=== PATIENT | male | born 1965 | race Hispanic/Latino ===

== ENCOUNTER → 2024-12-30 | Emergency (ER) | payer BC ==
[~2024-12-30] VITALS: Ht 165.1 cm; Wt 61.7 kg
[~2024-12-30] MED LIST: APIX5TAB PO
[2024-12-30 12:38] LABS: IMMATURE GRANULOCYTE ABSOLUTE 0.01 K/uL (0-1); NUCLEATED RED BLOOD CELLS 0.0 % (0.0-0.19); PLATELET COUNT (AUTO) 194 K/uL (130-400); RED BLOOD CELL COUNT(AUTO) 4.46 MIL/uL (4.50-6.20); RED CELL DISTRIBUTION WIDTH 12.0 % (11.0-15.5); WHITE BLOOD COUNT (AUTO) 5.2 K/uL (4.8-10.8)
[2024-12-30 12:48] LABS: INR 1.03 (0.85-1.15)
--- NOTE | 2024-12-30 12:57 | EKG ---
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
[2024-12-30 12:58] LABS: CREATININE 0.7 mg/dL (0.5-1.3); GLOMERULAR FILTR. RATE CALC 105.0 mL/min (>90); GLUCOSE,RANDOM 105.0 mg/dL (70-105); SODIUM SERUM 144.0 mmol/L (136-145); UREA NITROGEN, BLOOD 23.0 mg/dL (7-18)
[2024-12-30 13:03] LABS: ASPARTATE AMINOTRANSFERASE 29.0 U/L (10-37); TOTAL PROTEIN, SERUM 7.7 g/dL (6.0-8.3)
[2024-12-30 13:22] VITALS: BP 121/74; PULSE 45; RESP 17; TEMP 98.1; O2SAT 98
--- NOTE | 2024-12-30 13:29 | HMCIMG ---
EXAM: CR Chest, 1 View. CLINICAL HISTORY: cp COMPARISON: None provided. FINDINGS: LUNGS: The lungs show no infiltrate or other acute finding. PLEURAL SPACES: No evidence of pleural effusion or pneumothorax. Scarring along the left lateral costophrenic angle. MEDIASTINUM: The cardiomediastinal silhouette is within normal limits. BONES: No aggressive appearing osseous lesion seen. IMPRESSION: No acute cardiopulmonary pathology is evident. /[place]
[2024-12-30] MEDS: LIDOCAINE HCL 2% VISCOUS 15 ML UDCUP PO SCH (14:06)
[2024-12-30] MEDS: MIDAZOLAM HCL 1 MG/ML 2ML VIAL IVP SCH (14:07)
--- NOTE | 2024-12-30 14:50 | ERN ---
ED Note History of Present Illness Stated Complaint: OTHER Chief Complaint: Other Problems Time Seen by MD: 12:17 Dictation: 59-year-old male presenting to the emergency department for new onset atrial fibrillation, asymptomatic, patient was being screened for colonoscopy in and found to be in a rate controlled atrial fibrillation rhythm, sent over by buffer nickel for evaluation and possible cardioversion Allergies: Coded Allergies: No Known Drug Allergies (Unverified Allergy, Unknown, 12/30/24) Past Medical History Past Medical History: No Pertinent History Surgical History: Other Surgical History Other: PARTIAL SPLENECTOMY, EXPLORATORY LAP Review of System Dictation Constitutional: Negative for fever,chills, and weight loss Eyes: Negative for injury, pain,redness, and discharge ENT: Negative for injury,pain or swelling Cardiovascular: Negative for chest pain, palpitations, and edema Respiratory: Negative for shortness of breath, cough, and wheezing, Abdomen/GI: Negative for abdominal pain, nausea, vomiting, diarrhea, and constipation Back: Negative for injury and pain : Negative for injury, bleeding and discharge MS/Extremity: Negative for injury and deformity Skin: Negative for rash, and discoloration Neuro: Negative for headache, weakness, numbness, tingling, and seizure Psych: Negative for suicide ideation, homicidal ideation, and hallucinations Initial Vital Sign VS Vital Signs Date Time Temp Pulse Resp B/P (MAP) Pulse Ox O2 Delivery O2 Flow Rate FiO2 12/30/24 12:50 50 16 118/71 99 Room Air 0 12/30/24 13:22 98.1 21 Physical Exam Dictation General: awake, alert, NAD Head/Face: Normocephalic, atraumatic Eyes: PERRL, EOMI, vision at baseline ENT: oral cavity clear, TMs clear, no signs of infection Neck: Trachea midline, supple, no nuchal rigidity Cardiovascular: Irregular rhythm normal S1/S2, No MRGs, no JVD Respiratory: CTAB, no respiratory distress, No rales or wheezes Abdomen: Soft, non-tender, non-distended, normal bowel sounds, no guarding or rebound. Skin: Warm, dry, normal turgor, no rash MS/Extremity: Pulses equal, no cyanosis, neurovascular intact, FROM Neuro: COAx4, GCS 15, strength 5/5, CN 2-12 intact, normal cerebellar exam, normal gait, Psych: Normal behavior, mood, and affect normal Results (Laboratory/Radiology) Laboratory/Radiology Laboratory Tests Test 12/30/24 12:33 White Blood Count 5.2 K/uL (4.8-10.8) Red Blood Count 4.46 MIL/uL (4.50-6.20) L Hemoglobin 13.7 g/dL (14.0-18.0) L Hematocrit 40.7 % (42-54) L Mean Corpuscular Volume 91.3 fL (79-99) Mean Corpuscular Hemoglobin 30.7 pg (27.0-33.0) Mean Corpuscular Hemoglobin Concent 33.7 g/dL (32.0-36.0) Red Cell Distribution Width 12.0 % (11.0-15.5) Platelet Count 194 K/uL (130-400) Mean Platelet Volume 10.0 fL (7.5-10.5) Immature Granulocyte % (Auto) 0.2 % (0-1) Neutrophils (%) (Auto) 54.5 % (40.0-77.0) Lymphocytes (%) (Auto) 34.9 % (21.0-51.0) Monocytes (%) (Auto) 7.1 % (3.0-13.0) Eosinophils (%) (Auto) 2.7 % (0.0-8.0) Basophils (%) (Auto) 0.6 % (0.0-5.0) Neutrophils # (Auto) 2.8 K/uL (1.8-7.7) Lymphocytes # (Auto) 1.8 K/uL (1.0-4.8) Monocytes # (Auto) 0.4 K/uL (0.1-1.0) Eosinophils # (Auto) 0.14 K/uL (0.00-0.70) Basophils # (Auto) 0.03 K/uL (0.00-0.20) Absolute Immature Granulocyte (auto 0.01 K/uL (0-1) Nucleated Red Blood Cells 0.0 % (0.0-0.19) Prothrombin Time 10.9 SEC (9.6-11.6) Prothromb Time International Ratio 1.03 (0.85-1.15) Activated Partial Thromboplast Time 28.1 SEC (26.3-35.5) Sodium Level 144 mmol/L (136-145) Potassium Level 4.1 mmol/L (3.5-5.1) Chloride Level 104 mmol/L (101-111) Carbon Dioxide Level 30 mmol/L (21-32) Blood Urea Nitrogen 23 mg/dL (7-18) H Creatinine 0.7 mg/dL (0.5-1.3) Glomerular Filtration Rate Calc 105 mL/min (>90) Random Glucose 105 mg/dL (70-105) Total Calcium 9.3 mg/dL (8.5-10.1) Total Bilirubin 1.1 mg/dL (0.2-1.0) H Direct Bilirubin 0.2 mg/dL (0.0-0.3) Aspartate Amino Transf (AST/SGOT) 29 U/L (10-37) Alanine Aminotransferase (ALT/SGPT) 37 U/L (12-78) Alkaline Phosphatase 60 U/L (50-136) Troponin I High Sensitivity 6 ng/L (4-75) B-Type Natriuretic Peptide 71 pg/mL (0-100) Total Protein 7.7 g/dL (6.0-8.3) Albumin 4.2 g/dL (3.5-5.0) Labs Reviewed?: Yes EKG Comment: Heart rate 52, atrial fibrillation no STEMI ED Course ED Course Orders Procedure Category Date Status Time 12 Lead Ekg Tracing- EKG 12/30/24 Complete Technical 12:17 Cbc With Differential LAB 12/30/24 Complete 12:17 Basic Metabolic Panel LAB 12/30/24 Complete 12:17 Hepatic Function Panel LAB 12/30/24 Complete 12:17 Pt And Ptt LAB 12/30/24 Complete 12:17 Troponin I High LAB 12/30/24 Complete Sensitivity 12:17 Chest 1vw RAD 12/30/24 Resulted 12:17 B-Type Natriuretic LAB 12/30/24 Complete Peptide 12:17 Fentanyl Citrate Pf PHA 12/30/24 In Process 0.05 Mg/Ml (Fentanyl 13:30 Midazolam Hcl (Versed) PHA 12/30/24 In Process 13:30 Lidocaine Hcl 2% PHA 12/30/24 In Process Viscous (Lidocaine Hcl 13:30 ECHO ECHO 12/30/24 Taken Christiano--Transesophageal 14:00 Cardiology Consult CONPHYSVC 12/30/24 Transmitted 13:30 Atropine 1mg Syg PHA 12/30/24 Complete (Atropine 1mg Syg) 14:17 Current Medications Medications (Trade) Dose Ordered Sig/Myra Route PRN Reason Start Time Stop Time Status Last Admin Dose Admin Atropine Sulfate (Atropine 1mg Syg) 1 mg STK-MED ONCE IVP 12/30/24 14:17 12/30/24 14:17 DC Fentanyl Citrate (FENTanyl CITRate PF 50 MCG/ 1 ML 2ML VIAL) 100 mcg PREOP IVP 12/30/24 13:30 12/30/24 17:30 12/30/24 14:09 Lidocaine HCl (Lidocaine HCl 2% Viscous) 15 ml ONCE PO 12/30/24 13:30 12/30/24 17:30 12/30/24 14:06 Midazolam HCl (Versed) 2 mg PREOP IVP 12/30/24 13:30 12/30/24 17:30 12/30/24 14:07 Vital Signs Date Time Temp Pulse Resp B/P (MAP) Pulse Ox O2 Delivery O2 Flow Rate FiO2 12/30/24 13:22 98.1 45 17 121/74 98 Room Air* 0 21 12/30/24 12:50 50 16 118/71 99 Room Air 0 Medical Decision Making MDM MDM: Differential diagnosis: Rationale: Tests considered and ordered secondary to shared decision making include: Previous outside records reviewed: Old ER visits. Risk of complication and/or morbidity or mortality of patient management: None Medications-Per medication reconciliation Need for hospitalization: Patient does not meet criteria for hospitalization. Need for emergency major/minor surgery: No There are no social concerns with this patient. Prescription drug management Prescriptions will include symptomatic care Patient's prior external medical records from other ER visits were reviewed by me as indicated. Prior testing and results from previous visits were reviewed. Prior tests were taken into account with medical decision making and resource utilization, independent historian/historians were used to obtain complete medical history. I independently interpreted the test that were performed, results were reviewed by me and considered findings on radiology if ordered. Medical management and examination interpretation discussions were had by me with other qualified healthcare professionals as indicated for the patient's care. DX & DISP Departure Condition: Stable Referrals: SELF,REFERRAL (PCP) JACINDA IYER MD Dec 30, 2024 14:50
[2024-12-30] MEDS: ATROPINE 1MG SYG IVP ONE (15:50)
--- NOTE | 2024-12-30 16:43 | NUR ---
SEE SEDATION NOTES
--- NOTE | 2024-12-30 16:58 | CONS ---
Cardiology Consult Note Cardiology Attending: Hawk Galvez Consulting Physician: ED physician Date of Service: 12/30/24 Reason for Consult: Palpitations HPI: This is a 59-year-old male with no past medical history, who presents with decreased exercise tolerance of 2 weeks in duration. The symptoms began spontaneously and over the ensuing timeframe progressively worsened. The symptoms were not exacerbated or alleviated by anything. The patient denies any associated symptoms including headache, dizziness, syncope, chest pain, chest pressure, palpitations, shortness for breath, dyspnea with exertion, PND, orthopnea, abdominal pain, weight gain, or lower extremity swelling/edema. The patient underwent a screening ECG on 12/26/2024 which identified paroxysmal atrial fibrillation. He then underwent a 2nd ECG on Sunday, which reconfirmed paroxysmal atrial fibrillation, with a controlled ventricular response. He was subsequently advised to come to the emergency department for further evaluation and treatment. PMH: Listed above PSH: Partial splenectomy FH: Significant for DMII. SH: Social alcohol use. Denies tobacco, or illicit drug use. Medications: Eliquis 5 mg BID Allergies: Coded Allergies: No Known Drug Allergies (Unverified Allergy, Unknown, 12/30/24) Review of systems: General: Denies fever or chills HEENT: Denies changes in vision, earache or sore throat Neck: Denies pain or stiffness Cardio: As per the HPI Pulm: As per the HPI GI: Denies abdominal pain, nausea, vomiting, diarrhea, or constipation. MSK: Denies muscle or back pain. Heme: Denies anemia, easy bruising, or bleeding. Neuro: Denies headache, dizziness, or syncope. Psych: Denies anxiety, depression, or suicide ideations Physical Exam: Vital Signs Date Time Temp Pulse Resp B/P (MAP) Pulse Ox O2 Delivery O2 Flow Rate FiO2 12/30/24 13:22 98.1 45 17 121/74 98 Room Air* 0 21 General: Alert and oriented x 3. NAD HEENT: NC/AT. Oral mucosa is moist. Neck: No masses, JVD, or carotid bruits Lungs: NRD. SCM. B/L CTA. No wheezing, rales or rhonchi. Cardio: Rate @ 58bpm. Irregular rhythm. Abdomen: Soft. NT. ND. Normal active bowel sounds x 4 quadrants. Extremities: No edema, clubbing or cyanosis. +2 pulses noted throughout. Neuro: CN II-XII were grossly intact. No focal deficits. Labs: Laboratory Tests Test 12/30/24 12:33 Range/Units White Blood Count 5.2 4.8-10.8 K/uL Red Blood Count 4.46 L 4.50-6.20 MIL/uL Hemoglobin 13.7 L 14.0-18.0 g/dL Hematocrit 40.7 L 42-54 % Mean Corpuscular Volume 91.3 79-99 fL Mean Corpuscular Hemoglobin 30.7 27.0-33.0 pg Mean Corpuscular Hemoglobin Concent 33.7 32.0-36.0 g/dL Red Cell Distribution Width 12.0 11.0-15.5 % Platelet Count 194 130-400 K/uL Mean Platelet Volume 10.0 7.5-10.5 fL Immature Granulocyte % (Auto) 0.2 0-1 % Neutrophils (%) (Auto) 54.5 40.0-77.0 % Lymphocytes (%) (Auto) 34.9 21.0-51.0 % Monocytes (%) (Auto) 7.1 3.0-13.0 % Eosinophils (%) (Auto) 2.7 0.0-8.0 % Basophils (%) (Auto) 0.6 0.0-5.0 % Neutrophils # (Auto) 2.8 1.8-7.7 K/uL Lymphocytes # (Auto) 1.8 1.0-4.8 K/uL Monocytes # (Auto) 0.4 0.1-1.0 K/uL Eosinophils # (Auto) 0.14 0.00-0.70 K/uL Basophils # (Auto) 0.03 0.00-0.20 K/uL Absolute Immature Granulocyte (auto 0.01 0-1 K/uL Nucleated Red Blood Cells 0.0 0.0-0.19 % Prothrombin Time 10.9 9.6-11.6 SEC Prothromb Time International Ratio 1.03 0.85-1.15 Activated Partial Thromboplast Time 28.1 26.3-35.5 SEC Sodium Level 144 136-145 mmol/L Potassium Level 4.1 3.5-5.1 mmol/L Chloride Level 104 101-111 mmol/L Carbon Dioxide Level 30 21-32 mmol/L Blood Urea Nitrogen 23 H 7-18 mg/dL Creatinine 0.7 0.5-1.3 mg/dL Glomerular Filtration Rate Calc 105 >90 mL/min Random Glucose 105 70-105 mg/dL Total Calcium 9.3 8.5-10.1 mg/dL Total Bilirubin 1.1 H 0.2-1.0 mg/dL Direct Bilirubin 0.2 0.0-0.3 mg/dL Aspartate Amino Transf (AST/SGOT) 29 10-37 U/L Alanine Aminotransferase (ALT/SGPT) 37 12-78 U/L Alkaline Phosphatase 60 50-136 U/L Troponin I High Sensitivity 6 4-75 ng/L B-Type Natriuretic Peptide 71 0-100 pg/mL Total Protein 7.7 6.0-8.3 g/dL Albumin 4.2 3.5-5.0 g/dL ECG 12/30/2024: Atrial fibrillation, with a controlled ventricular response. Assessment: 1. Paroxysmal atrial fibrillation, with a controlled ventricular response Plan: 1. Paroxysmal atrial fibrillation, with a controlled ventricular response -Substrate: Dilated atrium -Inciting factor: Unknown -ECG 12/30/2024: Atrial fibrillation, with a controlled ventricular response. -The patient complains of decreased exercise tolerance, of 2 weeks in duration. The symptoms began spontaneously and over the ensuing timeframe progressively worsened. The symptoms were not exacerbated or alleviated by anything. The patient denies any associated symptoms. The patient's symptoms appear to be secondary to new onset paroxysmal atrial fibrillation, with a controlled ventric ular response. -In order to address this issue we recommend DC cardioversion, to re-establish a sinus rhythm. We are unsure as to how long the patient has been in atrial fibrillation, so we will perform a NAHEED before hand. -In the meantime the patient will continue on Eliquis 5 mg BID Thank you for this interesting consult and allowing us to participate in the care of your patient. Further recommendations to follow. HAWK GALVEZ MD Dec 30, 2024 16:58
--- NOTE | 2024-12-30 23:15 | HMCSR ---
APPROVED REPORT EXAM: Transesophageal echocardiogram with color flow Doppler. INDICATION ICD: Atrial Fibrillation Reason For Test : Rule out Intracardiac Thrombus. PROCEDURE After obtaining informed consent, patient underwent transesophageal echo in the Emergency department was given as a topical anesthetic prior to the administration of the conscious sedation. Type of Sedation: Sedation was administered by Please refer to medication administration record. . Sedation was achieved with Versed 2mg, Fentanyl 50 mcg intravenously. Transesophageal probe was inserted and advanced into esophagus without difficulty by Mansoor Galvez MD . NAHEED was performed and images were obtained, probe was removed without complications. Throughout the procedure, the blood pressure, pulse oximetry, cardiac rhythm, and rate were monitored . Left Ventricle The left ventricle is normal size. There is normal LV segmental wall motion. Mild concentric left tiara tricular hypertrophy. Left ventricular systolic function is normal, estimated LVEF is >55%. Indetermi daxa diastolic function Right Ventricle The right ventricle is normal size. The right ventricular systolic function is normal. Atria The left atrium is mildly dilated. There is smoke/rouleaux formation seen in the left atrium but no o bvious thrombus. The left atrial appendage is normal in size. There is thrombus formation (1.3 x 1.0 cm) seen with the left atrial appendage. No evidence of PFO/ASD by color Doppler. The right atrium si ze is normal. Aortic Valve Aortic valve is trileaflet. No aortic regurgitation is present. There is no aortic valvular stenosis. Mitral Valve The mitral valve is normal in structure and function. Mild mitral regurgitation. There is no mitral v alve stenosis. Tricuspid Valve The tricuspid valve is normal in structure. There is no tricuspid valve regurgitation noted. Pulmonic Valve Pulmonic valve is not well visualized. Great Vessels The aortic root is normal in size. The descending thoracic aorta is normal in structure. Pericardium There is no pericardial effusion. Conclusion The left atrium is mildly dilated. There is smoke/rouleaux formation seen in the left atrium but no obvious thrombus. The left atrial appendage is normal in size. There is thrombus formation (1.3 x 1.0 cm) seen with th e left atrial appendage. Mild concentric left ventricular hypertrophy. There is normal LV segmental wall motion. Left ventricular systolic function is normal, estimated LVEF is >55%. Indeterminate diastolic function Mild mitral regurgitation. There is no pericardial effusion. Conclusions: Paroxysmal atrial fibrillation, with a slow ventricular response. Thrombus formation seen in the left atrial appendage. Recommendations: Continue anticoagulation, Eliquis 5 mg BID Repeat NAHEED in 4 weeks. If thrombus has resolved at that time, then we will proceed with DC cardiover lukas.
== END ==
LOC: EDH 12:16
DX: I48.0 Paroxysmal atrial fibrillation (principal); Z79.01 Long term (current) use of anticoagulants; Z83.3 Family history of diabetes mellitus; Z90.81 Acquired absence of spleen
CPT/HCPCS: 99285; 93312; 71045; 80076; 84484; 80048; 83880; 85025; 85610; 85730; 36415; 93325; 99152; 93005; J3010; J2250; J0461